=== PATIENT | male | born 1940 | race Caucasian/White ===

== ENCOUNTER 2018-07-19 05:28 | Inpatient (IN) | payer MEDICARE, BC ==
[2018-07-14 10:06] LABS: BASOPHILS # (AUTO) 0.1 X10'3 (0-0.2); BASOPHILS % (AUTO) 1.3 % (0-1); EOSINOPHILS # (AUTO) 0.2 X10'3 (0-0.9); LYMPHOCYTES # (AUTO) 1.1 X10'3 (1.1-4.8); LYMPHOCYTES % (AUTO) 28.4 % (21-51); MEAN CORPUSCULAR HEMOGLOBIN 32.5 PG (27.0-31.0); MEAN CORPUSCULAR HGB CONC 33.4 % (33.0-36.5); MEAN CORPUSCULAR VOLUME 97.3 FL (78-98); MEAN PLATELET VOLUME 7.4 FL (7.4-10.4); MONOCYTES # (AUTO) 0.5 X10'3 (0-0.9); MONOCYTES % (AUTO) 11.9 % (2-12); NEUTROPHILS # (AUTO) 2.1 X10'3 (1.8-7.7); NEUTROPHILS % (AUTO) 52.4 % (42-75); PRE OP HEMATOCRIT 42.5 % (42.0-52.0); PRE OP HEMOGLOBIN 14.2 g/dL (14.0-17.9); PRE OP PLATELET COUNT 198 X10'3 (140-440); RED BLOOD COUNT 4.36 X10'6 (4.70-6.10); RED CELL DISTRIBUTION WIDTH 13.6 % (11.5-14.5)
[2018-07-14 10:19] LABS: ALBUMIN 3.5 G/DL (3.4-5.0); ALKALINE PHOSPHATASE 64 IU/L (46-116); BLOOD UREA NITROGEN 18 MG/DL (7-18); BUN/CREATININE RATIO 15.4 (5.4-32.0); CALCIUM 8.3 MG/DL (8.5-10.1); CHLORIDE 105 MMOL/L (99-107); CREATININE 1.17 MG/DL (0.60-1.10); PRE OP ALT 20 U/L (30-65); PRE OP ANION GAP 2 (8-16); PRE OP AST 19 U/L (10-37); PRE OP BILIRUB, TOTAL 0.4 MG/DL (0.0-1.0); PRE OP GLUCOSE 115 MG/DL (70-104); PRE OP POTASSIUM 4.1 MMOL/L (3.4-5.1); PRE OP SODIUM 141 MMOL/L (135-145); TOTAL CARBON DIOXIDE 33.7 MMOL/L (24-32); eGFR 60 ML/MIN
[2018-07-19] VITALS (17 sets, daily range): BP systolic 103–143; BP diastolic 58–76
[~2018-07-19] VITALS: Ht 180.3 cm; Wt 91.0 kg
[~2018-07-19 05:28] MED LIST: CALC625T31 PO; CELE-85 PO; FISH12002 PO; LISI-600 PO; ringers solution, lacted 1,000 ML IV SCH
[2018-07-19] MEDS ORDERED: tranexamic acid inj. 1,000 MG in normal saline 100ml IV soln 90 ML IV ONE (05:30)
[2018-07-19] MEDS ORDERED: famotidine 20mg tablet PO ONE (05:30)
[2018-07-19] MEDS ORDERED: cefazolin/dext.iso 2gm/100 ML IV ONE (05:30)
[2018-07-19] MEDS ORDERED: vancomycin inj 1,500 MG in normal saline 300ml IV soln IV ONE (05:30)
[2018-07-19] MEDS ORDERED: ceFAZolin 1000mg inj ONE (07:04)
[2018-07-19] MEDS ORDERED: cloNIDine hcl/PF 100mcg/ml inj ONE (07:13)
[2018-07-19] MEDS ORDERED: ROPIVAcaine 0.5% (5mg/ml) 30ml vial ONE (07:13)
[2018-07-19] MEDS ORDERED: tetracaine 1% (10mg/ml) pres. free inj. ONE (07:15)
[2018-07-19] MEDS ORDERED: morphine /PF 1mg/ml 10ml inj. ONE (07:15)
[2018-07-19] MEDS ORDERED: MIDAZolam 1mg/ml 10ml vial ONE (07:15)
[2018-07-19] MEDS ORDERED: fentaNYL/PF 50MCG/1 ML 2ML syringe ONE (07:16)
[2018-07-19] MEDS ORDERED: BUPIVAcaine/dex-water/PF 7.5 mg/ml 2ml ampul ONE (07:18)
[2018-07-19] MEDS ORDERED: dexamethasone sod phosphate 4mg/ml inj. ONE (07:18)
[2018-07-19] MEDS ORDERED: ringers solution, lacted 1,000 ML IV SCH (08:12)
[2018-07-19] MEDS ORDERED: meperidine/PF 25mg/ml syringe IV PRN ×2 (08:15)
[2018-07-19] MEDS ORDERED: diphenhydrAMINE 50 mg/ml inj IV PRN (08:15)
[2018-07-19] MEDS ORDERED: enalaprilat dihydrate 2.5mg/2ml vial IV PRN (08:15)
[2018-07-19] MEDS ORDERED: ondansetron/PF 4mg/2ml inj IV PRN ×3 (08:15→10:15)
[2018-07-19] MEDS ORDERED: morphine 4 MG/ML inj SYRINge IV PRN ×2 (08:15)
[2018-07-19] MEDS ORDERED: hydrALAZINE 20mg/ml inj. IV PRN (08:15)
[2018-07-19] MEDS ORDERED: bisacodyl 10mg suppository rectal RC PRN (10:15)
[2018-07-19] MEDS ORDERED: acetaminophen 325mg tablet PO PRN (10:15)
[2018-07-19] MEDS ORDERED: diphenhydrAMINE 25mg capsule PO PRN ×2 (10:15)
[2018-07-19] MEDS ORDERED: magnesium hydroxide 30ml (MOM) UD suspension PO PRN (10:15)
[2018-07-19] MEDS ORDERED: HYDROmorphone 1 mg/ml syringe IV PRN (10:15)
[2018-07-19] MEDS: proCHLORperazine 10 MG/2 ml inj IV PRN ×2 (13:14→20:07)
[2018-07-19] MEDS: potassium Cl 20mEq in NS 1,000 ML IV SCH ×2 (13:15→23:35)
[2018-07-19] MEDS: ceFAZolin 1GM/D5W- ADD-VANTAGE 50 ML IV SCH (17:41)
[2018-07-19] MEDS ORDERED: vancomycin/NS 1 GM ADD-VANTAGE 250 ML IV SCH (20:00)
[2018-07-19] MEDS: celeCOXIB 100mg capsule PO SCH (20:08)
[2018-07-19] MEDS: lisinopril 20mg tablet PO SCH (20:08)
[2018-07-19] MEDS: aspirin 81mg tablet.DR PO SCH (20:08)
[2018-07-19] MEDS: sennosides 8.6mg tablet PO SCH (20:08)
[2018-07-20] VITALS (8 sets, daily range): BP systolic 107–169; BP diastolic 56–83
[2018-07-20] MEDS: ceFAZolin 1GM/D5W- ADD-VANTAGE 50 ML IV SCH (00:07)
[2018-07-20] MEDS: HYDROcodone/acetaminophen 10/325mg tab PO PRN ×5 (04:40→22:16)
[2018-07-20] MEDS: potassium Cl 20mEq in NS 1,000 ML IV SCH (05:47)
[2018-07-20 06:38] LABS: BASOPHILS % (AUTO) 0.2 % (0-1); EOSINOPHILS # (AUTO) 0.1 X10'3 (0-0.9); EOSINOPHILS % (AUTO) 1.4 % (0-6); HEMOGLOBIN 11.1 g/dl (14.0-17.9); LYMPHOCYTES # (AUTO) 0.7 X10'3 (1.1-4.8); LYMPHOCYTES % (AUTO) 10.2 % (21-51); MEAN CORPUSCULAR HEMOGLOBIN 32.7 PG (27.0-31.0); MEAN CORPUSCULAR HGB CONC 33.7 % (33.0-36.5); MEAN CORPUSCULAR VOLUME 97.2 FL (78-98); MEAN PLATELET VOLUME 7.5 FL (7.4-10.4); MONOCYTES # (AUTO) 0.9 X10'3 (0-0.9); MONOCYTES % (AUTO) 13.9 % (2-12); NEUTROPHILS # (AUTO) 4.9 X10'3 (1.8-7.7); NEUTROPHILS % (AUTO) 74.3 % (42-75); PLATELET COUNT 142 X10'3 (140-440); RED CELL DISTRIBUTION WIDTH 13.7 % (11.5-14.5); WHITE BLOOD COUNT 6.6 X10'3 (4.5-11.0)
[2018-07-20 07:10] LABS: ALANINE AMINOTRANSFERASE 16 U/L (12-78); ALBUMIN 2.7 G/DL (3.4-5.0); ALBUMIN/GLOBULIN RATIO 0.9 (1.1-1.5); ALKALINE PHOSPHATASE 45 IU/L (46-116); ANION GAP 4 (8-16); ASPARTATE AMINO TRANSFERASE 16 U/L (10-37); BILIRUBIN,TOTAL 0.6 MG/DL (0.1-1.0); BLOOD UREA NITROGEN 12 MG/DL (7-18); BUN/CREATININE RATIO 12.5 (5.4-32.0); CALCIUM 8.1 MG/DL (8.5-10.1); CHLORIDE 104 MMOL/L (99-107); CREATININE 0.96 MG/DL (0.60-1.10); GLUCOSE 118 MG/DL (70-104); POTASSIUM 4.1 MMOL/L (3.5-5.1); SODIUM 137 MMOL/L (135-145); TOTAL PROTEIN 5.6 G/DL (6.4-8.2); eGFR 76 ML/MIN
[2018-07-20] MEDS: aspirin 81mg tablet.DR PO SCH ×2 (07:30→17:35)
[2018-07-20] MEDS: celeCOXIB 100mg capsule PO SCH (20:13)
[2018-07-20] MEDS: sennosides 8.6mg tablet PO SCH (20:14)
[2018-07-20] MEDS: lisinopril 20mg tablet PO SCH (20:14)
[2018-07-20] MEDS ORDERED: HYDROcodone/acetaminophen 10/325mg tab PO STA (20:34)
[2018-07-21] MEDS: potassium Cl 20mEq in NS 1,000 ML IV SCH (04:29)
[2018-07-21] MEDS: HYDROcodone/acetaminophen 10/325mg tab PO PRN ×2 (05:01→08:59)
[2018-07-21 05:40] LABS: BASOPHILS % (AUTO) 0.5 % (0-1); EOSINOPHILS # (AUTO) 0.2 X10'3 (0-0.9); EOSINOPHILS % (AUTO) 2.7 % (0-6); HEMATOCRIT 32.6 % (42.0-52.0); HEMOGLOBIN 11.1 g/dl (14.0-17.9); LYMPHOCYTES # (AUTO) 0.8 X10'3 (1.1-4.8); LYMPHOCYTES % (AUTO) 13.2 % (21-51); MEAN CORPUSCULAR HEMOGLOBIN 33.2 PG (27.0-31.0); MEAN CORPUSCULAR VOLUME 97.5 FL (78-98); MEAN PLATELET VOLUME 7.9 FL (7.4-10.4); MONOCYTES # (AUTO) 1.1 X10'3 (0-0.9); MONOCYTES % (AUTO) 17.6 % (2-12); NEUTROPHILS # (AUTO) 4.3 X10'3 (1.8-7.7); PLATELET COUNT 141 X10'3 (140-440); RED BLOOD COUNT 3.35 X10'6 (4.70-6.10); RED CELL DISTRIBUTION WIDTH 13.9 % (11.5-14.5); WHITE BLOOD COUNT 6.4 X10'3 (4.5-11.0)
[2018-07-21 06:00] VITALS: BP 159/84
[2018-07-21 06:03] LABS: ALANINE AMINOTRANSFERASE 14 U/L (12-78); ALBUMIN 2.7 G/DL (3.4-5.0); ALBUMIN/GLOBULIN RATIO 0.8 (1.1-1.5); ALKALINE PHOSPHATASE 50 IU/L (46-116); ANION GAP 8 (8-16); ASPARTATE AMINO TRANSFERASE 20 U/L (10-37); BILIRUBIN,TOTAL 1.1 MG/DL (0.1-1.0); BLOOD UREA NITROGEN 14 MG/DL (7-18); CALCIUM 8.5 MG/DL (8.5-10.1); CHLORIDE 104 MMOL/L (99-107); CREATININE 1.17 MG/DL (0.60-1.10); GLUCOSE 101 MG/DL (70-104); POTASSIUM 3.7 MMOL/L (3.5-5.1); SODIUM 139 MMOL/L (135-145); TOTAL CARBON DIOXIDE 26.9 MMOL/L (24-32); eGFR 60 ML/MIN
[2018-07-21] MEDS: aspirin 81mg tablet.DR PO SCH (07:19)
[2018-07-21] MEDS ORDERED: HYDR-3972 PO (07:49)
[2018-07-21] MEDS ORDERED: ASPI-1071 PO (07:49)
[2018-07-21 10:00] VITALS: BP 143/62
== END 2018-07-21 12:05 | disposition home or self-care (01) | DRG 470 ==
LOC: PAS IN 05:28 → ORTHO 4S 11:20 → EDSTATUS 15:15
PROVIDERS: ADMIT Orthopaedic Surgery; ATTEND Orthopaedic Surgery
PROC: 3E0T3BZ Introduction of Anesthetic Agent into Peripheral Nerves and Plexi, Percutaneous Approach (ICD-10-PCS; 2018-07-19)
PROC: 0SRD0J9 Replacement of Left Knee Joint with Synthetic Substitute, Cemented, Open Approach (ICD-10-PCS; principal; 2018-07-19 07:19)
DX: M17.12 Unilateral primary osteoarthritis, left knee (principal); D62 Acute posthemorrhagic anemia; I10 Essential (primary) hypertension; K21.9 Gastro-esophageal reflux disease without esophagitis; Z79.899 Other long term (current) drug therapy
CPT/HCPCS: 36415; 80053; 85025; 85610; 85730; 86885; 86900; 86901; 86920; 87070; 97110; 97116; 97162; 97530; A6454; A7000; C1713; C1758; C1776; G0378; J0690; J0735; J0780; J1100; J2250; J2274; J2405; J2795; J3010; J3370; J3490; J7030; J7120; Q0163

== ENCOUNTER 2022-07-07 08:10 | Day surgery (SDC) | payer MEDICARE, BC ==
[2022-07-07] VITALS (8 sets, daily range): BP systolic 150–181; BP diastolic 64–98
[~2022-07-07] VITALS: Ht 180.3 cm; Wt 94.1 kg
[~2022-07-07 08:10] MED LIST changes: +ASPI-1071 PO; -CALC625T31 PO; -FISH12002 PO; +HYDR-3972 PO; -LISI-600 PO; +LISI20TA28 PO; -ringers solution, lacted 1,000 ML IV SCH
[2022-07-07] MEDS ORDERED: cefazolin/dext.iso 2gm/100ml 100 ML IV ONE (08:35)
[2022-07-07] MEDS ORDERED: normal saline 1000ml 1,000 ML IV SCH ×2 (08:35→16:55)
[2022-07-07] MEDS ORDERED: CYAN250010 PO (08:52)
[2022-07-07] MEDS ORDERED: BRIM5DRO2 EACHEYE (08:52)
[2022-07-07] MEDS ORDERED: ERGO400C PO (08:52)
[2022-07-07] MEDS ORDERED: FLO0.4C PO (08:52)
[2022-07-07] MEDS ORDERED: TRIA100C7 PO (08:52)
[2022-07-07] MEDS ORDERED: MAGN400C PO (08:52)
[2022-07-07 09:49] LABS: BASOPHILS # (AUTO) 0.1 X10'3 (0-0.2); BASOPHILS % (AUTO) 1.3 % (0-1); EOSINOPHILS # (AUTO) 0.2 X10'3 (0-0.9); EOSINOPHILS % (AUTO) 3.5 % (0-6); HEMATOCRIT 40.7 % (42.0-52.0); HEMOGLOBIN 14.2 g/dl (14.0-17.9); LYMPHOCYTES # (AUTO) 1.2 X10'3 (1.1-4.8); LYMPHOCYTES % (AUTO) 24.3 % (21-51); MEAN CORPUSCULAR HEMOGLOBIN 33.8 PG (27.0-31.0); MEAN CORPUSCULAR HGB CONC 34.8 g/dL (33.0-36.5); MEAN PLATELET VOLUME 7.8 FL (7.4-10.4); MONOCYTES # (AUTO) 0.6 X10'3 (0-0.9); MONOCYTES % (AUTO) 11.5 % (2-12); NEUTROPHILS # (AUTO) 2.9 X10'3 (1.8-7.7); NEUTROPHILS % (AUTO) 59.4 % (42-75); PLATELET COUNT 179 X10'3 (140-440); RED CELL DISTRIBUTION WIDTH 13.5 % (11.5-14.5)
[2022-07-07 09:55] LABS: ANION GAP 8 (8-16); BLOOD UREA NITROGEN 18 MG/DL (7-18); BUN/CREATININE RATIO 13.8 (5.4-32.0); CALCIUM 9.1 MG/DL (8.5-10.1); CHLORIDE 106 MMOL/L (99-107); GLUCOSE 107 MG/DL (70-104); POTASSIUM 4.3 MMOL/L (3.5-5.1); SODIUM 142 MMOL/L (135-145); TOTAL CARBON DIOXIDE 28.2 MMOL/L (24-32); eGFR 53 ML/MIN
[2022-07-07] MEDS ORDERED: midazolam 1 mg/ML 2ml injection ONE ×3 (13:28→14:46)
[2022-07-07] MEDS ORDERED: LIDOCAINE 2% w/EPI 1:100:000 30mL injection MDV**cath lab 1 only ONE (13:29)
[2022-07-07] MEDS ORDERED: vancomycin 1,000mg inj ONE (13:29)
[2022-07-07] MEDS ORDERED: fentaNYL/PF 50MCG/1 ML 2ML syringe ONE ×2 (13:29→14:46)
== END 2022-07-07 18:35 | disposition home or self-care (01) ==
LOC: SSTAY O 08:10
PROVIDERS: ATTEND Internal Medicine Cardiovascular Disease
DX: I49.5 Sick sinus syndrome (principal); I34.9 Nonrheumatic mitral valve disorder, unspecified; I10 Essential (primary) hypertension; E78.5 Hyperlipidemia, unspecified; I45.10 Unspecified right bundle-branch block; I48.91 Unspecified atrial fibrillation; Z98.890 Other specified postprocedural states; Z79.899 Other long term (current) drug therapy; Z72.89 Other problems related to lifestyle
CPT/HCPCS: 33208; 36415; 71045; 80048; 83735; 85025; 85610; 93005; 99152; 99153; C1785; C1894; C1898; J2250; J3010; J3370; J3490; J7030; A4565; A4620; A6258

== ENCOUNTER 2022-11-20 09:49 | Outpatient (CLI) | payer MEDICARE, BC ==
[~2022-11-20 09:49] MED LIST changes: -ASPI-1071 PO; +BRIM5DRO2 EACHEYE; -CELE-85 PO; +CYAN250010 PO; +ERGO400C PO; +FLO0.4C PO; -HYDR-3972 PO; -LISI20TA28 PO; +MAGN400C PO; +TRIA100C7 PO
== END 2022-11-20 23:59 | disposition home or self-care (01) ==
LOC: RAD 09:49
PROVIDERS: ATTEND Internal Medicine Cardiovascular Disease
DX: I63.9 Cerebral infarction, unspecified (principal); G45.9 Transient cerebral ischemic attack, unspecified; J34.89 Other specified disorders of nose and nasal sinuses
CPT/HCPCS: 70551

== ENCOUNTER 2023-11-06 07:12 | Day surgery (SDC) | payer MEDICARE, BC ==
[2023-11-06] VITALS (11 sets, daily range): BP systolic 120–150; BP diastolic 57–75; PULSE 60–63; RESP 10–20; TEMP 98.3; O2SAT 93–97
[~2023-11-06] VITALS: Ht 177.8 cm; Wt 94.3 kg
[2023-11-06] MEDS: diphenhydrAMINE 25mg capsule PO PRN (08:23)
[2023-11-06] MEDS: normal saline 1,000 ML IV SCH (08:23)
[2023-11-06] MEDS: sodium bicarbonate 1meq/ml syr 150 ML in dextrose 5%-water 1,000 ML IV ONE (08:23)
[2023-11-06] MEDS ORDERED: EZET10TA48 PO (08:31)
[2023-11-06] MEDS ORDERED: HYDR12.55 PO (08:31)
[2023-11-06] MEDS ORDERED: NEBI2.5T2 PO (08:31)
[2023-11-06] MEDS ORDERED: APIX5TAB5 PO (08:31)
[2023-11-06 08:40] LABS: INR 0.9 INR
[2023-11-06 08:48] LABS: ALBUMIN 3.3 G/DL (3.4-5.0); ANION GAP 9 (8-16); BLOOD UREA NITROGEN 22 MG/DL (7-18); BUN/CREATININE RATIO 18.3 (10.0-20.0); CALCIUM 7.9 MG/DL (8.5-10.1); CHLORIDE 106 MMOL/L (99-107); GLUCOSE 107 MG/DL (70-104); MAGNESIUM 2.2 MG/DL (1.5-2.4); POTASSIUM 3.7 MMOL/L (3.5-5.1); SODIUM 143 MMOL/L (135-145); TOTAL CARBON DIOXIDE 27.7 MMOL/L (24-32); eCRCL 48 ML/MIN; eGFR 58 ML/MIN
[2023-11-06 08:52] LABS: BASOPHILS # (AUTO) 0.1 X10'3 (0-0.2); BASOPHILS % (AUTO) 1.3 % (0-1); EOSINOPHILS # (AUTO) 0.2 X10'3 (0-0.9); EOSINOPHILS % (AUTO) 3.5 % (0-6); HEMATOCRIT 38.4 % (42.0-52.0); HEMOGLOBIN 13.1 g/dl (14.0-17.9); LYMPHOCYTES # (AUTO) 1.2 X10'3 (1.1-4.8); LYMPHOCYTES % (AUTO) 25.5 % (21-51); MEAN CORPUSCULAR HEMOGLOBIN 33.4 PG (27.0-31.0); MEAN CORPUSCULAR HGB CONC 34.2 g/dL (33.0-36.5); MEAN CORPUSCULAR VOLUME 97.7 FL (78-98); MEAN PLATELET VOLUME 8.2 FL (7.4-10.4); MONOCYTES # (AUTO) 0.7 X10'3 (0-0.9); MONOCYTES % (AUTO) 14.5 % (2-12); NEUTROPHILS # (AUTO) 2.6 X10'3 (1.8-7.7); NEUTROPHILS % (AUTO) 55.2 % (42-75); PLATELET COUNT 175 X10'3 (140-440); RED BLOOD COUNT 3.94 X10'6 (4.70-6.10); RED CELL DISTRIBUTION WIDTH 13.9 % (11.5-14.5); WHITE BLOOD COUNT 4.7 X10'3 (4.5-11.0)
[2023-11-06] MEDS ORDERED: verapamil 2.5 mg/ml inj IV ONE (11:43)
[2023-11-06] MEDS ORDERED: LIDOcaine 1% (10mg/ml) 2ml vial ONE (11:43)
[2023-11-06] MEDS ORDERED: iohexol 350MG/ML 100ml bottle IV ONE (11:44)
[2023-11-06] MEDS ORDERED: iohexol 350 MG/ML 50ML vial IV ONE (11:44)
[2023-11-06] MEDS ORDERED: midazolam 1 mg/ML 2ml injection ONE (11:44)
[2023-11-06] MEDS ORDERED: fentaNYL/PF 50MCG/1 ML 2ML syringe ONE (11:44)
[2023-11-06] MEDS ORDERED: nitroGLYCERIN 500mcg/5mL D5W 5 ML IV ONE (11:44)
[2023-11-06] MEDS ORDERED: heparin 1,000unit/ml 10ml vial 10 ML ONE (11:44)
[2023-11-06] MEDS ORDERED: proCHLORperazine 10 MG/2 ml inj IV PRN (14:10)
[2023-11-06] MEDS ORDERED: HYDROcodone/acetaminophen 10/325mg tab PO PRN (14:10)
[2023-11-06] MEDS ORDERED: HYDROcodone/acetaminophen 5mg/325mg tablet PO PRN (14:10)
[2023-11-06] MEDS ORDERED: ondansetron/PF 4mg/2ml inj IV PRN (14:10)
== END 2023-11-06 17:30 | disposition home or self-care (01) ==
LOC: CATH LAB 07:12
PROVIDERS: ATTEND Internal Medicine Cardiovascular Disease
DX: R94.39 Abnormal result of other cardiovascular function study (principal); I34.0 Nonrheumatic mitral (valve) insufficiency; I10 Essential (primary) hypertension; I48.0 Paroxysmal atrial fibrillation; I49.5 Sick sinus syndrome; E78.5 Hyperlipidemia, unspecified; I45.10 Unspecified right bundle-branch block; Z95.0 Presence of cardiac pacemaker; Z86.73 Personal history of transient ischemic attack (TIA), and cerebral infarction without residual deficits; Z95.2 Presence of prosthetic heart valve; Z96.659 Presence of unspecified artificial knee joint; Z98.890 Other specified postprocedural states; Z72.89 Other problems related to lifestyle; Z88.8 Allergy status to other drugs, medicaments and biological substances
CPT/HCPCS: 80048; 83735; 85025; 85610; 93005; 93458; 99152; J1644; J2250; J3010; J3490; J7030; J7070; Q0163; Q9967; A6258; A6402; A6449; C1894